=== PATIENT | male | born 1950 | race Caucasian/White ===

== ENCOUNTER → 2018-07-21 | Outpatient (CLI) | payer OTHER | END | disposition home or self-care (01) | LOC: TOM 07:30 | DX: R10.32 Left lower quadrant pain (principal) ==

== ENCOUNTER 2018-07-29 07:30 | Outpatient (CLI) | payer OTHER | END 2018-07-29 07:32 | disposition home or self-care (01) | LOC: SONOGRAMA 07:30 | DX: R93.41 Abnormal radiologic findings on diagnostic imaging of renal pelvis, ureter, or bladder (principal) ==

== ENCOUNTER 2021-08-11 14:28 | Emergency (ER) | payer OTHER ==
[~2021-08-11] VITALS: Ht 177.8 cm; Wt 102.5 kg
[2021-08-11] MEDS ORDERED: TENORMIN50 M1 PO (14:40)
[2021-08-11] MEDS ORDERED: AMLODIPINE-BEN1 EAC2 (14:40)
[2021-08-11] MEDS ORDERED: ALODIPINE (14:40)
== END 2021-08-11 19:36 | disposition home or self-care (01) ==
LOC: ER 14:28
DX: S50.11XA Contusion of right forearm, initial encounter (principal); W18.39XA Other fall on same level, initial encounter; Y93.89 Activity, other specified; Y92.098 Other place in other non-institutional residence as the place of occurrence of the external cause; Y99.8 Other external cause status